=== PATIENT | male | born 1995 | race Caucasian/White ===

== ENCOUNTER → 2019-06-20 | Outpatient (REF) ==
--- NOTE | 2019-06-20 10:57 | RADIOLOGY IMAGING REPORT ---
FACILITY: [facility] PATIENT NAME: Shalom Carbajal : 1995 MR: [id number] V: [id number] EXAM DATE: ORDERING PHYSICIAN: MARCELLA TRAN TECHNOLOGIST: Location: [facility] [place] Patient: Shalom Carbajal : 1995 Visit/Account:[id number] Date of Sevice: 06/20/2019 CHEST PA LAT HISTORY: Positive TB test. COMPARISON: None FINDINGS: Cardiomediastinal contours: The heart size is normal. Lungs and pleura: There is no finding of an infiltrate, lymphadenopathy or pleural effusion. Bones/soft tissues: There are no findings of a fracture. IMPRESSION: Normal chest x-ray without findings of acute disease. Report Dictated By: Alejandro Gomez MD at 06/20/2019 10:48 AM Report E-Signed By: Alejandro Gomez MD at 06/20/2019 10:48 AM WSN:[id number]
== END ==
LOC: RAD 10:24
PROVIDERS: ATTEND Internal Medicine
DX: Z11.1 Encounter for screening for respiratory tuberculosis (principal)
CPT/HCPCS: 71046